=== PATIENT | female | born 1965 | race Caucasian/White ===

== ENCOUNTER → 2023-06-26 08:50 | Outpatient (CLI) | payer OTHER, SELFPAY ==
--- NOTE | 2023-06-26 | DI.US.S_ITS ---
PROCEDURE: US THYROID INDICATIONS: Hypothyroidism, unspecified TECHNIQUE: Real-time scanning was performed of the thyroid gland, with image documentation. COMPARISON: None. FINDINGS: Right: Thyroid lobe measures 5.1 x 1.8 x 2.9 cm, and is homogeneous in echotexture. Left: Thyroid lobe measures 3.0 x 1.3 x 1.0 cm, and is heterogeneous in echotexture with a micro lobular margin. Isthmus: 2.1 mm thick. Nodule number: 1 Location: Right inferior pole Size: 1.3 x 0.8 x 1.4 cm. Composition: Predominantly cystic Echogenicity: Hypoechoic Shape: wider than tall. Margins: Ill-defined Echogenic foci: No Total points: Three ACR TI-RADS category: Mildly suspicious Nodule number: 2 Location: Right midpole deep Size: 1.1 x 0.9 x 1.1 cm. Composition: Solid Echogenicity: Isoechoic to hypoechoic Shape: wider than tall. Margins: Smooth Echogenic foci: None Total points: Three/four ACR TI-RADS category: Mild/moderately suspicious Nodule number: 3 Location: Right midpole superficial Size: 0.9 x 0.6 x 0.7 cm. Composition: Solid Echogenicity: Isoechoic Shape: wider than tall. Margins: Smooth Echogenic foci: No Total points: Three ACR TI-RADS category: Mildly suspicious IMPRESSION: 1. Asymmetrically enlarged right thyroid gland with mainly mildly suspicious nodules as described. 2. Left lobe of the gland demonstrates morphology of chronic thyroiditis. ACR TI-RADS definitions and recommendations: TI-RADS 1 (benign): 0 points. FNA not needed. TI-RADS 2 (not suspicious): 2 points. FNA not needed. TI-RADS 3 (mildly suspicious): 3 points. * FNA if 2.5 cm or larger, follow up if 1.5 cm or larger (at 1, 3, and 5 years). TI-RADS 4 (moderately suspicious): 4-6 points. * FNA if 1.5 cm or larger, follow up if 1 cm or larger (at 1, 2, 3, and 5 years). TI-RADS 5 (highly suspicious): 7 points or more. * FNA if 1 cm or larger, follow up if 0.5 cm or larger (every year for 5 years). Dictated by: Allie Meyer M.D. on 06/26/2023 at 15:13 Approved by: Allie Meyer M.D. on 06/26/2023 at 15:18
== END ==
PROVIDERS: Referring Provider Family Medicine; Visit Provider Family Medicine
DX: E03.9 Hypothyroidism, unspecified (principal); E04.2 Nontoxic multinodular goiter
CPT/HCPCS: 76536

== ENCOUNTER → 2024-04-20 08:58 | Outpatient (CLI) | payer OTHER, SELFPAY ==
--- NOTE | 2024-04-20 09:00 | DI.RAD.S_ITS ---
PROCEDURE: FL BARIUM SWALLOW INDICATIONS: Right upper quadrant pain, Dysphagia COMPARISON: None. FINDINGS: Function: There is normal esophageal peristalsis. No elicited gastroesophageal reflux. There is normal transit of a calibrated barium tablet through the esophagus into the stomach. Morphology: Air-contrast images demonstrate normal mucosal morphology. Single contrast views show no esophageal strictures, extrinsic mass effects, or diverticula. Limited images of the stomach demonstrate normal appearance. IMPRESSION: Unremarkable exam. Dictated by: Carmita Heck M.D. on 04/20/2024 at 17:05 Approved by: Carmita Heck M.D. on 04/20/2024 at 17:05
--- NOTE | 2024-04-20 09:00 | DI.US.S_ITS ---
PROCEDURE: US ABDOMEN COMPLETE INDICATIONS: Right upper quadrant pain, Dysphagia TECHNIQUE: Real-time scanning was performed of the abdominal and retroperitoneal organs, with image documentation. COMPARISON: None. FINDINGS: Liver: Liver is normal in size and increased in echogenicity. Gallbladder: Within normal limits. No gallbladder wall thickening or gallstones. Biliary ducts: Intrahepatic bile ducts are non-dilated. Extrahepatic bile duct caliber measures 2 mm. Normal is 6-7 mm or less in diameter, or 10 mm or less post-cholecystectomy. Pancreas: Visualized portions of the pancreas are sonographically normal. Spleen: Spleen is normal in size and homogeneous in echotexture. Kidneys: Kidneys are normal in size and echotexture. Right kidney measures 10.6 cm long; left kidney measures 10.4 cm long. No hydronephrosis or nephrolithiasis. No solid masses. Aorta: Visualized aorta is normal in caliber at less than 3 cm. Iliacs: Proximal common iliac arteries are normal in caliber at less than 2.5 cm. IVC: Intrahepatic inferior vena cava is patent. Miscellaneous: No free abdominal fluid. IMPRESSION: Increased echogenicity of the liver, most consistent with hepatic steatosis. Otherwise, normal abdominal ultrasound. Dictated by: Simone Munoz M.D. on 04/20/2024 at 11:00 Approved by: Simone Munoz M.D. on 04/20/2024 at 11:07
== END ==
PROVIDERS: Referring Provider Nurse Practitioner Family; Visit Provider Nurse Practitioner Family
DX: R13.10 Dysphagia, unspecified (principal); R68.81 Early satiety; K59.00 Constipation, unspecified; R12 Heartburn; R10.11 Right upper quadrant pain
CPT/HCPCS: 74220; 76700